=== PATIENT | female | born 1990 | race Caucasian/White ===

== ENCOUNTER → 2016-12-14 | Outpatient (CLI) | payer BC ==
[~2016-12-14] MED LIST: AMPH15CA7 PO; FEXO1TAB49 PO; LEVOTAB2 PO; SERT50TA PO; VNTHFA/IN INH
--- NOTE | 2016-12-14 16:56 | DIAGNOSTIC IMAGING REPORT ---
RIGHT FIFTH FINGER 3 VIEWS CLINICAL HISTORY: Right fifth finger pain status post trauma COMPARISON: None. DISCUSSION: There is a tiny chip/avulsion fracture arising from the volar base of the middle phalanx. There is no dislocation. IMPRESSION: Tiny chip/avulsion fracture arising from the volar base of the middle phalanx. Electronically signed by: Perez Kumar M.D. 12/14/2016 4:55 PM Dictated Date/Time: 12/14/2016 4:54 PM
== END | disposition home or self-care (01) ==
LOC: C.RAD 16:21
PROVIDERS: ATTEND Family Medicine
DX: S69.91XA Unspecified injury of right wrist, hand and finger(s), initial encounter (principal); X58.XXXA Exposure to other specified factors, initial encounter